=== PATIENT | female | born 1985 | race American Indian/Alaskan Native ===

== ENCOUNTER 2021-08-31 06:41 | Day surgery (SDC) | payer OTHER ==
[2021-08-29 13:38] LABS: Basophils % (Auto) 0.4 % (0.0-1.8); Eosinophils # (Auto) 0.1 K/mm3 (0.0-0.4); Eosinophils % (Auto) 1.7 % (0.0-4.3); Hematocrit 37.5 % (30.3-42.9); Hemoglobin 11.9 gm/dl (10.1-14.3); Lymphocytes # (Auto) 2.1 K/mm3 (1.2-5.4); Mean Corpuscular HGB Conc 32 % (30-34); Mean Corpuscular Volume 82 fl (79-97); Monocytes # (Auto) 0.5 K/mm3 (0.0-0.8); Monocytes % (Auto) 7.2 % (0.0-7.3); Platelet Count 278 K/mm3 (140-440); Red Blood Count 4.59 M/mm3 (3.65-5.03); Red Cell Distribution Width 15.9 % (13.2-15.2)
[2021-08-29 13:58] LABS: BUN/Creatinine Ratio 21; Blood Urea Nitrogen 15 mg/dL (7-17); Calcium 8.7 mg/dL (8.4-10.2); Hemolysis Index 5
--- NOTE | 2021-08-29 14:18 | Anesthesia Consultation ---
Anesthesia Consult and Med Hx Date of service: 08/31/21 - Airway Anesthetic Teeth Evaluation: Partials (Upper) ROM Head & Neck: Adequate Mental/Hyoid Distance: Adequate Mallampati Class: Class II Intubation Access Assessment: Good - Pre-Operative Health Status ASA Pre-Surgery Classification: ASA3 Proposed Anesthetic Plan: General Nerve Block: TAP - Pulmonary Hx Smoking: No Hx Respiratory Symptoms: No (+2FS) Hx Sleep Apnea: No (TESTED NEG) - Central Nervous System Hx Neuromuscular Disorder: Yes (Migraines) Hx Psychiatric Problems: No - Gastrointestinal Hx Gastroesophageal Reflux Disease: No - Hematic Hx Anemia: No Hx Sickle Cell Disease: No - Other Systems Hx Alcohol Use: No Hx Substance Use: No Hx Cancer: No Hx Obesity: Yes (BMI 41)
--- NOTE | 2021-08-30 22:44 | History and Physical Report ---
History of Present Illness Date of examination: 08/31/21 Date of admission: 08/31/2021 Chief complaint: Here for my surgery History of present illness: Patient with history of heavy menstrual bleeding presents for hysterectomy. Notes heavy bleeding since the of her third child. States her menses is 7- 8 days with heavy flow and passage of "fist" sized clots. Was initially told she should have a hysterectomy after the of her fourth child, but moved. Trie d a hormonal IUD to treat bleeding, but it came out in a large blood clot in December 2020. Now desires definitive management with hysterectomy. Past History Past Medical History: migraines Past Surgical History: total hip replacement, Other (BTL, D&C) Social history: no significant social history Family history: cancer, hypertension, stroke Medications and Allergies Allergies Allergy/AdvReac Type Severity Reaction Status Date / Time No Known Allergies Allergy Unverified 08/25/21 10:57 Home Medications Medication Instructions Recorded Confirmed Last Taken Type Topiramate [Topamax] 50 mg PO BID 08/25/21 08/25/21 Unknown History Triamcinolone Acetonide [Nasacort 2 spray BN DAILY 08/25/21 08/25/21 Unknown History SPRAY] Active Meds: Active Medications Acetaminophen (Acetaminophen 500 Mg Tab) 1,000 mg PO ONCE ONE Stop: 08/31/21 06:01 Celecoxib (Celecoxib 200 Mg Cap) 400 mg PO PREOP NR Stop: 08/31/21 23:59 Fentanyl (Fentanyl 100 Mcg/2 Ml Inj) 100 mcg IV ONCE ONE Stop: 08/31/21 06:01 Lactated Ringer's (Lactated Ringers) 1,000 mls @ 125 mls/hr IV DIRECT RITA Cefazolin Sodium (Ancef/Sterile Water 2 Gm/20 Ml) 2 gm in 20 mls @ 80 mls/hr IV PREOP NR; Protocol Magnesium Oxide (Magnesium Oxide 400 Mg Tab) 400 mg PO ONCE ONE Stop: 08/31/21 06:01 Methocarbamol (Methocarbamol 750 Mg Tab) 1,500 mg PO ONCE ONE Stop: 08/31/21 06:01 Midazolam HCl (Midazolam 2 Mg/2 Ml Inj) 2 mg IV PREOP NR Stop: 08/31/21 23:59 Review of Systems All systems: negative Genitourinary Female: dysmenorrhea, menorrhagia Exam - Constitutional Vitals: Temp Pulse Resp BP Pulse Ox 99.1 F 72 20 135/93 99 08/29/21 13:15 08/29/21 13:15 08/29/21 13:15 08/29/21 13:15 08/29/21 13:15 General appearance: Present: no acute distress, well-nourished - Respiratory Respiratory effort: normal - Extremities Extremities: pulses symmetrical, No edema - Abdominal General gastrointestinal: Present: soft, non-tender, non-distended - Integumentary Integumentary: Present: clear, warm, dry Results - Labs CBC & Chem 7: 08/29/21 13:30 08/29/21 00:01 Assessment and Plan Patient with HMB, previously failed hormonal IUD S/p SIS with benign endometrium Patient counseled on management options including medical and surgical. Desires hysterectomy Procedure risks reviewed including pain, bleeding, infection, damage to surrounding tissues and structures, need for further procedures. Procedure and blood consents signed. 2 g Ancef preoperatively To OR for robotic assisted laparoscopic hysterectomy, bilateral salpingectomy - Patient Problems (1) Menorrhagia with regular cycle Status: Acute
[~2021-08-31 06:41] MED LIST: ACETAMINOPHEN 500 MG TAB PO ONE; CELECOXIB 200 MG CAP PO NR; LACTATED RINGERS 1,000 ML IV SCH; MAGNESIUM OXIDE 400 MG TAB PO ONE; MIDAZOLAM 2 MG/2 ML INJ IV NR; ceFAZolin/Water 2 GM/20 ML 2 GM/20 ML SYRINGE IV NR; fentaNYL 100 MCG/2 ML INJ IV ONE
[2021-08-31] MEDS ORDERED: NEOMY 40 MG/POLYMYXIN B 200,000 UNITS/ML (GU) AMPULE IR ONE ×2 (07:28→09:53)
[2021-08-31] MEDS ORDERED: dexAMETHasone 20 MG/5 ML VIAL ONE (07:59)
[2021-08-31] MEDS ORDERED: BUPIVACAINE/PF (0.25%) 2.5 MG/ML 30 ML VIAL INFILTRATI ONE (07:59)
--- NOTE | 2021-08-31 08:08 | Anesthesia Day of Surgery ---
Anesthesia Day of Surgery - Day of Surgery Patient Examined: Yes Patient H&P Reviewed: Yes Patient is NPO: Yes
[2021-08-31] MEDS ORDERED: ceFAZolin/Water 2 GM/20 ML 2 GM/20 ML SYRINGE IV ONE (08:28)
[2021-08-31] MEDS ORDERED: fentaNYL 100 MCG/2 ML INJ ONE (08:31)
[2021-08-31] MEDS ORDERED: propofoL 200 MG/20 ML VIAL IV ONE (08:31)
[2021-08-31] MEDS ORDERED: KETAMINE/STERILE WATER 50 MG/ML SYRINGE ONE (08:50)
[2021-08-31] MEDS ORDERED: ONDANSETRON 4 MG/2 ML INJ IV PRN (09:00)
[2021-08-31] MEDS ORDERED: HYDROmorphone 1 MG/1 ML INJ IV PRN (09:00)
[2021-08-31] MEDS ORDERED: SODIUM CHLORIDE 0.9% IRRIG SOLN 2000 ML IR ONE (09:54)
[2021-08-31] MEDS ORDERED: SODIUM CHLORIDE 0.9% IRR 1,500 ML BOTTLE IR ONE (09:54)
[2021-08-31] MEDS ORDERED: GLYCOPYRROLATE 0.4 MG/2 ML INJ ONE (11:06)
[2021-08-31] MEDS ORDERED: ePHEDrine SULFATE 50 MG/1 ML INJ ONE (11:06)
[2021-08-31] MEDS ORDERED: NEOSTIGMINE 10MG/10 ML INJ MDV ONE (11:06)
[2021-08-31] MEDS ORDERED: LACTATED RINGERS 1,000 ML ONE (11:06)
[2021-08-31] MEDS ORDERED: ONDANSETRON 4 MG/2 ML INJ ONE (11:06)
[2021-08-31] MEDS ORDERED: KETOROLAC 30 MG/1 ML INJ ONE (11:06)
--- NOTE | 2021-08-31 11:23 | Operative Report ---
Operative Report Operative Report: Date of procedure: August 31, 2021 Pre-operative diagnosis: Menorrhagia dysmenorrhea failed conservative treatment Post-operative diagnosis: Same Procedure name(s):Robotic Assisted Total Hysterectomy with bilateral salpingectomy Surgeon: Jordy Godfrey MD Furniture Duster: Tati Barney MD Anesthesia: General EBL: 75 cc Complications: None Findings: Patient with uterus approximately 10 weeks in size with normal ovaries bilateral and bilaterally interrupted fallopian tubes Specimen(s): Fimbriated in both fallopian tubes and uterus with cervix Procedure: Patient was brought to the operating room where general anesthesia was induced without difficulty. Patient was placed in the dorsal lithotomy position. Prepped and draped in the usual sterile manner for robotic procedure. Roblero catheter was placed without difficulty. Speculum was placed in the vagina. A medium V-Care Uterine manipulator was placed without difficulty. Attention was now switched to the patient's abdomen. A vertical supra-umbilicus incision was made with a scalpel. A 10-12 trocar was placed in this incision under direct visualization. Intra-abdominal placement was verified with no evidence of internal organ damage. The patient was insufflated approximately 3-1/2 L of CO2 gas. She was placed in Trendelenburg position. The patient pelvic findings were noted as above. It was determined that the patient was a candidate for robotic procedure. On both sides the umbilical incision at about 8 cm, incisions were made for robotic trocars. Each robotic trocar was placed under direct visualization with no evidence of internal organ damage. One 5 mm trocar was placed 2 fingerbreadths above the right iliac crest. A 5 mm camera was placed in the right lower quadrant trocar, the 10-12 trocar was removed and a Marlon Brantley laparoscopic port closure device was placed through this incision under direct visualization with no evidence of internal organ damage. The camera was then replaced into this port. At this time the patient was placed in extreme Trendelenburg. The da Chata robot was then docked on the patient's left side. The trocars connected to the robot appropriately robotic instruments were placed under direct visualization no evidence of internal organ damage.. At this time I took my place under the robotic operating samaniego. Starting on the patient's right side the ureter was identified and found to be out of the operative field. Using the robotic vessel sealer the mesosalpinx under the fallopian tube were cauterized and cut starting from the distal end,removing the the fimbriated end. This specimen was removed through the environmental engineering assistant's port. Utero-ovarian complex was then cauterized and cut. This was followed by cauterizing and cutting the right fallopian tube and right round ligament. The broad ligament was then opened. The bladder flap was formed anteriorly. The posterior broad ligament was then excised. The uterine vessels were skeletonized. The ureter was clearly seen out of the operative field. The bladder was pushed away from the anterior uterus. The right uterine vessels were then cauterized and cut. Attention was then switched to the patient's left side. The same procedure was repeated on the left side with perform the salpingectomy followed by isolating the uterine vessels cauterized and cutting and completing the bladder flap from the left side. At this time the uterus was appearing very cyanotic. After inspecting the bladder flap to insured no evidence of bladder injury, the colpotomy was then started. Incision started at 6:00 until the V-Care could be seen. This incision was extended from 6:00 to 9:00. Then from 6:00 to 3:00. Then from 9:00 to 12:00. This incision was extended from 3:00 to 12:00. At this time colpotomy was complete with no evidence of adjacent organ damage. The clinical research assistant remove the uterus from through the colpotomy site. The vaginal cuff was irrigated and cauterized and found to be hemostatic. The cuff was closed with roboticly using 0 V- Lock suture. This closure was hemostatic after irrigation and Bovie. All pedicles were inspected and found to be hemostatic. The ureters were identified bilaterally and found to be functioning normal. The patient had clear urine in the Roblero catheter with no evidence of mixture with blood. Kamron was placed on the cuff and pedicles for postoperative hemostasis . All instruments were then removed. The large trocar sites were closed in layers 2-0 Vicryl and 4-0 Monocryl. The smaller incisions were closed subcuticularly with 4-0 Monocryl. Dermabond was placed over the skin incisions. The patient tolerated procedure well. She was awakened in the operating room and accompanied to the recovery room in good condition.
[2021-08-31] MEDS: HYDROmorphone 1 MG/1 ML INJ IV PRN ×2 (11:40→11:50)
[2021-08-31] MEDS ORDERED: IBUPROFEN 600 MG TAB PO PRN (12:00)
[2021-08-31] MEDS ORDERED: oxyCODONE /ACETAMINOPHEN 5-325MG TAB PO PRN (12:00)
--- NOTE | 2021-08-31 13:14 | Short Stay Summary ---
Short Stay Documentation Date of service: 08/31/21 Narrative H&P: Patient with h/o HMB who failed medical management presenting for RA-TLH, BS. Voices no complaints today. Desires to proceed with hysterectomy for definitive management of heavy menstrual bleeding. - History H&P: dictated Past Medical History: migraines Past Surgical History: total hip replacement, Other (BTL, D&C) Social history: no significant social history - Allergies and Medications Current Medications: Allergies No Known Allergies Allergy (Unverified 08/25/21 10:57) Home Medications Medication Instructions Recorded Confirmed Last Taken Type Topiramate [Topamax] 50 mg PO BID 08/25/21 08/31/21 08/30/21 17:00 History Triamcinolone Acetonide [Nasacort 2 spray BN DAILY 08/25/21 08/31/21 08/30/21 09:00 History SPRAY] Docusate Sodium [Colace] 100 mg PO BID #60 capsule 08/31/21 Unknown Rx Ibuprofen [Motrin 800 MG tab] 800 mg PO Q8HR #30 tablet 08/31/21 Unknown Rx oxyCODONE /ACETAMINOPHEN [Percocet 1 tab PO Q6HR PRN #20 tablet 08/31/21 Unknown Rx 5/325] Active Medications Celecoxib (Celecoxib 200 Mg Cap) 400 mg PO PREOP NR Stop: 08/31/21 23:59 Last Admin: 08/31/21 07:25 Dose: 400 mg Hydromorphone HCl (Hydromorphone 1 Mg/1 Ml Inj) 0.25 mg IV Q10MIN PRN PRN Reason: Pain, Moderate (4-6) Stop: 08/31/21 17:00 Hydromorphone HCl (Hydromorphone 1 Mg/1 Ml Inj) 0.5 mg IV Q10MIN PRN PRN Reason: Pain , Severe (7-10) Stop: 08/31/21 17:00 Last Admin: 08/31/21 11:50 Dose: 0.5 mg Lactated Ringer's (Lactated Ringers) 1,000 mls @ 125 mls/hr IV DIRECT RITA Last Admin: 08/31/21 07:30 Dose: 125 mls/hr Ibuprofen (Ibuprofen 600 Mg Tab) 600 mg PO Q6H PRN PRN Reason: Pain, Mild (1-3) Midazolam HCl (Midazolam 2 Mg/2 Ml Inj) 2 mg IV PREOP NR Stop: 08/31/21 23:59 Last Admin: 08/31/21 08:05 Dose: 2 mg Oxycodone/Acetaminophen (Oxycodone /Acetaminophen 5-325mg Tab) 1 tab PO Q6H PRN PRN Reason: Pain, Moderate (4-6) Last Admin: 08/31/21 12:10 Dose: 1 tab - Physical exam General appearance: no acute distress Gastrointestinal: normal Extremities: pulses symmetrical, No edema - Disposition Condition at discharge: Good Disposition: 01 HOME / SELF CARE / HOMELESS - Discharge Diagnoses (1) Menorrhagia with regular cycle Status: Acute Short Stay Discharge Plan Activity: advance as tolerated (Nothing in the vagina for the next 4-6 weeks. ) Weight Bearing Status: Full Weight Bearing Diet: regular Wound: keep clean and dry Follow up with: MARY LOU GILLIS MD [Staff Physician] - 7 Days Forms: Outpatient Surgery DC Inst. Prescriptions: Docusate Sodium [Colace] 100 mg PO BID #60 capsule Ibuprofen [Motrin 800 MG tab] 800 mg PO Q8HR #30 tablet oxyCODONE /ACETAMINOPHEN [Percocet 5/325] 1 tab PO Q6HR PRN #20 tablet PRN Reason: Pain
[2021-08-31 13:36] VITALS: BP 135/77
--- NOTE | 2021-08-31 14:56 | Post Anesthesia Evaluation ---
- Post Anesthesia Evaluation Patient Participated: Yes Airway Patent: Yes Stable Respiratory Function: Yes Nausea/Vomiting: No Temp > 96.8F: Yes Pain Manageable: Yes Adequeate Hydration: Yes Anesthesia Complications: No Block Receding Appropriately: Yes Patient on Ventilator: No
== END 2021-08-31 14:00 | disposition home or self-care (01) ==
LOC: OR 06:41
PROVIDERS: ATTEND Obstetrics & Gynecology
DX: N92.0 Excessive and frequent menstruation with regular cycle (principal); N94.6 Dysmenorrhea, unspecified; Q50.4 Embryonic cyst of fallopian tube; N88.8 Other specified noninflammatory disorders of cervix uteri; G43.909 Migraine, unspecified, not intractable, without status migrainosus; Z20.822 Contact with and (suspected) exposure to COVID-19; Z79.899 Other long term (current) drug therapy; Z98.51 Tubal ligation status; Z98.890 Other specified postprocedural states
CPT/HCPCS: 36415; 58571; 64488; 80048; 84703; 85025; 86850; 86900; 86901; 88302; 88307; J0690; J1100; J1170; J1815; J1885; J2250; J2405; J2704; J2710; J3010; J3490; J7120; S2900; U0003; 64450